=== PATIENT | male | born 1950 | race Caucasian/White ===

== ENCOUNTER 2021-01-19 06:29 | Day surgery (SDC) | payer MEDICARE, BC ==
[2021-01-19] MEDS ORDERED: Lidocaine 1% with EPINEPHrine 1:100,000 50 ML MDV ONE (06:42)
[2021-01-19] MEDS ORDERED: Lidocaine 2% Jelly 30 ML Tube ONE (06:42)
[2021-01-19] MEDS ORDERED: Bupivacaine 0.5% 50 ML MDV ONE (06:42)
[2021-01-19] MEDS: Sodium Chloride 0.9% 1,000 ML IV SCH (07:24)
[2021-01-19] MEDS ORDERED: Propofol 200 MG/20 ML SDV ONE (07:26)
[2021-01-19] MEDS ORDERED: Midazolam 1 MG/ML 2 ML SDV ONE (07:26)
[2021-01-19] MEDS ORDERED: fentaNYL 100 MCG/2 ML SDV ONE (07:26)
[2021-01-19] MEDS: fentaNYL 100 MCG/2 ML SDV IVPUSH ONE (08:32)
--- NOTE | 2021-01-20 09:27 | OR ---
DATE OF PROCEDURE: 01/19/2021 SURGEON: Ever Crouch MD PROCEDURES: 1. Debridement of right hip (51494). 2. Wound VAC placement, greater than 50 sq cm (57184). COMPLICATIONS: None. ENVIRONMENTAL STUDIES PROGRAM DIRECTOR: None. ANESTHESIA: MAC. PREOPERATIVE DIAGNOSES: Chronic wound requiring wound VAC exchange. The patient is unable to do this without sedation due to significant pain. POSTOPERATIVE DIAGNOSIS: Chronic wound requiring wound VAC exchange. The patient is unable to do this without sedation due to significant pain. RISKS: Risks, benefits, alternatives, and limitations including but not limited to infection, bleeding, injury to abdominal structures, chronic wounds, chronic pain, injury to skin structures, and other risks not listed here were explained to the patient, and he wished to proceed. PROCEDURE IN DETAIL: The patient was placed in a left lateral decubitus position. The previous wound VAC was removed. There was some necrotic tissue, which was full-thickness, which was debrided using a curette and/or 15 blade. This was then irrigated. The wound VAC was then replaced in standard fashion, cutting to size, which was undersized approximately 20%. This was then overlaid with plastic hooked to the vacuum. Good seal was performed. The patient tolerated the procedure well. Ever Crouch MD /[id number]
== END 2021-01-19 09:31 | disposition home or self-care (01) ==
LOC: JP.SDS 06:29
PROVIDERS: ATTEND Surgery
DX: S71.001A Unspecified open wound, right hip, initial encounter (principal); Z88.8 Allergy status to other drugs, medicaments and biological substances
CPT/HCPCS: 11043; 11046; J2250; J2704; J3010; J3490; J7030

== ENCOUNTER 2021-01-23 09:02 | Day surgery (SDC) | payer MEDICARE, BC ==
[~2021-01-23 09:02] MED LIST: Midazolam 1 MG/ML 2 ML SDV ONE; Propofol 200 MG/20 ML SDV ONE; fentaNYL 100 MCG/2 ML SDV ONE
[2021-01-23] MEDS ORDERED: Dextrose 5%-Lactated Ringers 1,000 ML IV SCH (09:45)
[2021-01-23] MEDS ORDERED: Ketorolac 30 MG/ML SDV IVPUSH ONE (12:40)
[2021-01-23] MEDS ORDERED: Ketorolac 30 MG/ML SDV IM ONE ×2 (12:43→12:44)
--- NOTE | 2021-01-26 00:42 | OR ---
DATE OF PROCEDURE: 01/23/2021 SURGEON: Nikolas Ruiz MD PREOPERATIVE DIAGNOSIS: Large open wound overlying right hip area. POSTOPERATIVE DIAGNOSIS: Large open wound overlying right hip area. PROCEDURE PERFORMED: Replacement of wound VAC over a large open wound, right hip area (02963). ANESTHESIA: IV sedation. INDICATION FOR PROCEDURE: A 70-year-old with a large open wound over the right hip area that has been treated with wound VAC. It is quite uncomfortable, so the wound VAC changes will be done with IV sedation. Potential risks of the procedure were reviewed with the patient including further bleeding and infection, and the patient wishes to proceed. DETAILS OF PROCEDURE: The patient was taken to the operating room and placed in a left lateral decubitus position. The previous wound VAC was then taken down and the wound then cleansed with some saline solution. The wound itself appeared to be fairly clean, showing some progressive granulation tissue. The wound VAC dressing was then placed over the wound which measured 18 x 23 cm. The adhesive tape was then placed around this. Some additional adhesive tape was placed around the edges as he had reported some air leak with the last wound VAC placement, and a dressing was then applied to suction and the procedure then concluded. Plan will be to have Dr. Agee resume care of this patient with a wound VAC change this coming . Nikolas Ruiz MD /[id number]
== END 2021-01-23 13:25 | disposition home or self-care (01) ==
LOC: JP.SDS 09:02
PROVIDERS: ATTEND Surgery
DX: Z48.01 Encounter for change or removal of surgical wound dressing (principal); S71.001A Unspecified open wound, right hip, initial encounter; G47.33 Obstructive sleep apnea (adult) (pediatric); M10.9 Gout, unspecified
CPT/HCPCS: J1885; J2250; J2704; J3010; J7121

== ENCOUNTER 2021-01-26 08:31 | Day surgery (SDC) | payer MEDICARE, BC ==
[~2021-01-26 08:31] MED LIST changes: +Bupivacaine 0.5% 50 ML MDV ONE; +Lidocaine 1% with EPINEPHrine 1:100,000 50 ML MDV ONE; -Midazolam 1 MG/ML 2 ML SDV ONE; -Propofol 200 MG/20 ML SDV ONE; +Sodium Chloride 0.9% 1,000 ML IV SCH; -fentaNYL 100 MCG/2 ML SDV ONE
[2021-01-26] MEDS ORDERED: Propofol 200 MG/20 ML SDV ONE ×2 (08:33→10:41)
[2021-01-26] MEDS ORDERED: Midazolam 1 MG/ML 2 ML SDV ONE (08:33)
[2021-01-26] MEDS ORDERED: fentaNYL 100 MCG/2 ML SDV ONE (08:33)
[2021-01-26] MEDS ORDERED: Ketorolac 30 MG/ML SDV IVPUSH ONE (11:23)
[2021-01-26] MEDS ORDERED: Ketorolac 30 MG/ML SDV IM ONE (11:24)
--- NOTE | 2021-01-26 13:49 | OR ---
DATE OF PROCEDURE: 01/26/2021 SURGEON: Ever Crouch MD PROCEDURES: 1. Debridement of right hip, area debrided approximately 3 cm2, full thickness. 2. Wound VAC placement, greater than 50 cm2, right hip. 3. Incision and drainage of abscess, left hip. COMPLICATIONS: None. BLOG WRITER: None. SPECIMENS: Left hip cultured, anaerobic, aerobic. RISKS: Risks, benefits, alternatives, and limitations including, but not limited to infection, bleeding, chronic wounds, chronic pain, and other risks not listed here were explained to the patient and he wished to proceed. PROCEDURE IN DETAIL: The patient was placed in left lateral decubitus position. The previous wound VAC was removed. The area was inspected. Some debridement was performed of the anterior superior aspect of the wound. The new wound VAC was then placed after thorough irrigation. This was then placed. The black foam was then cut to approximately 1 cm from the edge. This was then secured using foam and a track pad was then placed without difficulty. Left hip was prepped, draped, numbed with 1% lidocaine. A single pa was created. Pus was noted. This was cultured. This was then thoroughly irrigated and 1 quarter-inch iodoform packing was placed. The patient tolerated the procedure well. Ever Crouch MD /[id number]
== END 2021-01-26 12:29 | disposition home or self-care (01) ==
LOC: JP.SDS 08:31
PROVIDERS: ATTEND Surgery
DX: S71.002A Unspecified open wound, left hip, initial encounter (principal); L02.416 Cutaneous abscess of left lower limb; Z01.812 Encounter for preprocedural laboratory examination; Z20.822 Contact with and (suspected) exposure to COVID-19
CPT/HCPCS: 10061; 11042; 87070; 87075; 87205; J1885; J2250; J2704; J3010; J7030; U0002; J3490

== ENCOUNTER 2021-01-30 09:53 | Day surgery (SDC) | payer MEDICARE, BC ==
[2021-01-30] MEDS ORDERED: Sodium Chloride 0.9% 1,000 ML IV SCH (10:30)
[2021-01-30] MEDS ORDERED: Propofol 200 MG/20 ML SDV ONE (10:56)
[2021-01-30] MEDS ORDERED: fentaNYL 100 MCG/2 ML SDV ONE (10:56)
[2021-01-30] MEDS ORDERED: Midazolam 1 MG/ML 2 ML SDV ONE (10:56)
[2021-01-30] MEDS ORDERED: Ertapenem 1 GM in Sodium Chloride 0.9% 100 ML IV ONE (13:00)
--- NOTE | 2021-01-30 19:18 | OR ---
DATE OF PROCEDURE: 01/30/2021 SURGEON: Ever Crouch MD PROCEDURES: 1. Wound exploration. 2. Biopsy 8 mm right hip wound. COMPLICATIONS: None. SUPERVISOR FABRICATION AND ASSEMBLY: None. ANESTHESIA: MAC. PREOPERATIVE DIAGNOSIS: Chronic wound. POSTOPERATIVE DIAGNOSIS: Chronic wound. FINDINGS: Worsening of right hip wound, concerning for ongoing or worsening infectious process. PROCEDURE IN DETAIL: The patient was placed in left lateral decubitus position. The wound was exposed and the plan was to replace the wound VAC, however, the patient has developed a worsening of the wound itself with an enlargement of the size. Etiology is unknown of this. A 15 blade was then used to take a skin biopsy of the edge. The remainder of the wound actually looked good, however, this is rather disconcerting that only one aspect of the wound is worsening. However, the patient will be placed on IV antibiotics in conjunction with a PICC line, although no cultures were grown previously. The patient also has Infectious Disease consult pending. Ever Crouch MD /[id number]
== END 2021-01-30 14:00 | disposition home or self-care (01) ==
LOC: JP.SDS 09:53
PROVIDERS: ATTEND Surgery
DX: L98.499 Non-pressure chronic ulcer of skin of other sites with unspecified severity (principal); S71.001A Unspecified open wound, right hip, initial encounter; L02.415 Cutaneous abscess of right lower limb; K21.9 Gastro-esophageal reflux disease without esophagitis
CPT/HCPCS: 11106; 88305; 88312; J1335; J2250; J2704; J3010; J7030